=== PATIENT | female | born 1960 | race African-American/Black ===

== ENCOUNTER 2020-11-25 08:51 | Emergency (ER) | payer OTHER ==
[~2020-11-25] VITALS: Ht 149.9 cm; Wt 70.8 kg
[2020-11-25 11:03] LABS: URINE BILIRUBIN NEGATIVE (Negative); URINE BLOOD NEGATIVE (Negative); URINE CLARITY CLEAR; URINE COLOR YELLOW; URINE GLUCOSE-RANDOM* NEGATIVE (Negative); URINE KETONES NEGATIVE (Negative); URINE NITRITE-REFLEX NEGATIVE (Negative); URINE PROTEIN (DIPSTICK) NEGATIVE (Negative); URINE SPECIFIC GRAVITY 1.015 (1.005-1.035); URINE UROBILINOGEN 0.2 E.U./dl (0.2-1.0)
[2020-11-25 11:04] LABS: URINE LEUKOCYTES-REFLEX 1+ (Negative)
[2020-11-25 11:05] LABS: ABSOLUTE NEUTROPHILS 1.8 thou/uL (1.4-8.2); BASOPHILS 1.1 % (0.0-2.0); EOSINOPHILS 2.2 % (0.0-3.0); HEMOGLOBIN 12.2 gm/dL (12.0-15.0); LYMPHOCYTES 43.7 % (24.0-44.0); MCH 30.5 pg (26.0-34.0); MCHC 33.9 g/dL (28.0-37.0); MCV 89.8 fL (80.0-100.0); MONOCYTES 9.1 % (1.0-8.0); PLATELET COUNT 210 thou/uL (150-400); POLYS 43.9 % (36.0-66.0); RBC 4.01 mil/uL (4.20-5.00); RDW 13.2 % (10.5-14.5)
[2020-11-25 11:15] LABS: CALCIUM 8.9 mg/dL (8.5-10.1); CREATININE 0.9 mg/dL (0.6-1.0)
[2020-11-25 11:21] LABS: ALBUMIN 3.5 g/dL (3.4-5.0); TOTAL BILIRUBIN 0.3 mg/dL (0.2-1.0); TOTAL PROTEIN 9.5 g/dL (6.4-8.2)
[2020-11-25 12:48] LABS: BACTERIA-REFLEX 1-9 Few /HPF (None Seen); CASTS None Seen /LPF (None Seen); SQUAMOUS >10 Many /LPF (0-3); URINE RBC 1-2 Rare /HPF (NONE SEEN); URINE WBC-REFLEX 6-15 Few /HPF (0-5)
[2020-11-25 12:49] LABS: CRYSTALS None Seen /LPF (None Seen)
[2020-11-25] MEDS ORDERED: ZANAFLEX4 MG PO (15:21)
[2020-11-25] MEDS ORDERED: NORCO7.5 PO (15:21)
[2020-11-25] MEDS ORDERED: NAPROSYN500 MG PO (15:21)
[2020-11-25 15:48] VITALS: BP 146/101
== END 2020-11-25 15:48 | disposition home or self-care (01) ==
LOC: ER 08:51
PROVIDERS: Emergency Medicine
DX: M54.42 Lumbago with sciatica, left side (principal); I10 Essential (primary) hypertension; J44.9 Chronic obstructive pulmonary disease, unspecified

== ENCOUNTER 2020-12-07 10:57 | Emergency (ER) | payer OTHER ==
[~2020-12-07] VITALS: Ht 149.9 cm; Wt 70.8 kg
[~2020-12-07 10:57] MED LIST: NAPROSYN500 MG PO; NORCO7.5 PO; ZANAFLEX4 MG PO
[2020-12-07] MEDS ORDERED: MEDROLDOSEPACK PO (11:37)
[2020-12-07] MEDS ORDERED: HYDROCODON-ACE1 EAC7 PO (11:37)
[2020-12-07 12:14] VITALS: BP 125/80
== END 2020-12-07 12:29 | disposition home or self-care (01) ==
LOC: ER 10:57
DX: M54.42 Lumbago with sciatica, left side (principal); J44.9 Chronic obstructive pulmonary disease, unspecified; J45.909 Unspecified asthma, uncomplicated; I10 Essential (primary) hypertension; Z72.89 Other problems related to lifestyle; Z79.899 Other long term (current) drug therapy

== ENCOUNTER 2020-12-23 10:11 | Emergency (ER) | payer OTHER ==
[~2020-12-23] VITALS: Ht 149.9 cm; Wt 72.6 kg
[~2020-12-23 10:11] MED LIST changes: +HYDROCODON-ACE1 EAC7 PO; +MEDROLDOSEPACK PO
[2020-12-23 12:29] LABS: ABSOLUTE NEUTROPHILS 3.2 thou/uL (1.4-8.2); BASOPHILS 0.8 % (0.0-2.0); HEMATOCRIT 35.1 % (37.0-47.0); HEMOGLOBIN 11.9 gm/dL (12.0-15.0); LYMPHOCYTES 25.7 % (24.0-44.0); MCH 30.6 pg (26.0-34.0); MCHC 33.9 g/dL (28.0-37.0); MCV 90.4 fL (80.0-100.0); MONOCYTES 6.9 % (1.0-8.0); PLATELET COUNT 229 thou/uL (150-400); POLYS 65.6 % (36.0-66.0); RBC 3.88 mil/uL (4.20-5.00); RDW 13.4 % (10.5-14.5); WBC 4.8 thou/uL (4.0-11.0)
[2020-12-23 12:32] LABS: CALCIUM 9.1 mg/dL (8.5-10.1); CREATININE 1.1 mg/dL (0.6-1.0); POTASSIUM 4.2 mmol/L (3.5-5.1)
[2020-12-23] MEDS ORDERED: MECLIZINE HCL25 MG PO (14:09)
[2020-12-23 14:39] VITALS: BP 137/95
--- NOTE | 2020-12-25 14:17 | EKG ---
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
== END 2020-12-23 14:49 | disposition home or self-care (01) ==
LOC: ER 10:11
PROVIDERS: Emergency Medicine
DX: R42 Dizziness and giddiness (principal); G89.29 Other chronic pain; M54.5 Low back pain; F17.210 Nicotine dependence, cigarettes, uncomplicated; J44.9 Chronic obstructive pulmonary disease, unspecified; I10 Essential (primary) hypertension; Z88.8 Allergy status to other drugs, medicaments and biological substances

== ENCOUNTER 2021-05-11 08:13 | Emergency (ER) | payer OTHER ==
[~2021-05-11] VITALS: Ht 149.9 cm; Wt 72.6 kg
[~2021-05-11 08:13] MED LIST changes: +MECLIZINE HCL25 MG PO
[2021-05-11] MEDS ORDERED: MEDROLDOSEPACK PO (09:41)
[2021-05-11] MEDS ORDERED: NORCO5 PO (09:41)
[2021-05-11 09:55] VITALS: BP 160/100
== END 2021-05-11 09:55 | disposition home or self-care (01) ==
LOC: ER 08:13
DX: M54.42 Lumbago with sciatica, left side (principal); J44.9 Chronic obstructive pulmonary disease, unspecified; I10 Essential (primary) hypertension; F17.210 Nicotine dependence, cigarettes, uncomplicated; Z79.891 Long term (current) use of opiate analgesic; Z79.899 Other long term (current) drug therapy; Z88.8 Allergy status to other drugs, medicaments and biological substances